=== PATIENT | male | born 1945 | race Caucasian/White ===

== ENCOUNTER → 2016-12-25 | Outpatient (CLI) | payer OTHER ==
[~2016-12-25] MED LIST: BP MED; CHOLESTEROL MED; DETROL PO
--- NOTE | ~2016-12-25 | BD1 ---
[facility] A Service of [facility] RADIOLOGY TEXT RESULTS PATIENT: LUCHO SANDOVAL LOCATION: [facility] : 41 UNIT #: [id number] AGE: [address]: Rita Wasserman MD SEX: M ORDER DR: [id number] [address] [address] [id number] O MR#: [id number] Acc #: [id number] NAME: LUCHO SANDOVAL : 1945 SEX: M STUDY DATE/TIME: 12/25/2016 10:43 UNIT: [facility] ROOM: STUDY DESCRIPTION: BD Dexa Bone Dens 1+ Site Attending Physician: Rita Wasserman M.D. Referring Physician: Rita Wasserman M.D. Ordering Physician: Rita Wasserman M.D. Primary Care Physician: Nicole Cheek MEDICAL IMAGING REPORT This report is preliminary unless electronic signature is present. EXAM DXA scan 12/25/2016 HISTORY Androgen deficiency and osteopenia. Hypertension with blood pressure medication for 10 years. Smoking history for 50 years. FINDINGS Bone mineral density in the lumbar spine from L1-L4 on 1.458 g/cm2 which is 2 standard deviations above the mean when compared to the young adult reference population which is within the range of normal. This is 1.8 standard deviations above the mean when compared to the age-matched population. Bone mineral density in the left femoral neck was 1.087 g/cm2 which is 0.1 standard deviations above the mean when compared to the young adult reference population which is within the range of normal. This is 1 standard deviation above the mean when compared to the age-matched population. Bone mineral density in the right femoral neck was 1.037 g/cm2 which is 0.3 standard deviations below the mean when compared to the young adult reference population which is within the range of normal. This is 0.6 standard deviations above the mean when compared to the age-matched population. IMPRESSION Bone mineral density in the lumbar spine and the hips bilaterally within the range of normal. Dictated by... Willis R. Bertin, M.D. THIS IS AN ELECTRONICALLY VERIFIED REPORT Willis Denton M.D. at 12/26/2016 8:06 AM KRT/rnr [facility] A Service of [facility] RADIOLOGY TEXT RESULTS PATIENT: LUCHO SANDOVAL LOCATION: [facility] : 41 UNIT #: [id number] AGE: [address]: Rita Wasserman MD SEX: M ORDER DR: TD: 12/25/2016 12:48 JOB #: [id number] MEDICAL IMAGING REPORT Page 1 of 1
== END | disposition home or self-care (01) ==
LOC: SRAD 10:20
DX: E29.1 Testicular hypofunction (principal)
CPT/HCPCS: 77080